=== PATIENT | female | born 1955 | race African-American/Black ===

== ENCOUNTER 2017-02-12 11:40 | Emergency (ER) | payer MEDICAID ==
[~2017-02-12] VITALS: Ht 162.6 cm; Wt 65.0 kg
[2017-02-12] MEDS ORDERED: METHYLPREDNISOLONE SOD SUCC 125 MG/2 ML VIAL IV STA (11:53)
[2017-02-12] MEDS ORDERED: IPRATROPIUM BROMIDE (0.02%) 0.5MG/2.5ML NEB HHN STA (11:53)
[2017-02-12] MEDS: ALBUTEROL (0.083%) 2.5MG/3ML NEB HHN SCH ×2 (12:10→13:35)
[2017-02-12 12:11] LABS: BASOPHILS % 0.6 % (0.0-2.0); EOSINOPHILS % 0.1 % (0.0-5.0); HEMATOCRIT. 36.7 % (36.0-48.0); HEMOGLOBIN. 12.7 g/dL (12.0-16.0); LYMPHOCYTES % 9.1 % (20.0-50.0); MEAN CORPUSCULAR HEMOGLOBIN 29.3 pg (28.0-32.0); MEAN CORPUSCULAR VOLUME 84.6 fL (81.0-99.0); MEAN PLATELET VOLUME 7.4 fl (7.4-10.4); MONOCYTES % 3.1 % (2.0-8.0); NEUTROPHILS % 87.1 % (40.0-76.0); PLATELET 457 x1000/uL (130-400); RED BLOOD CELL COUNT 4.34 mill/uL (4.2-5.4); RED CELL DISTRIBUTION WIDTH 14.8 % (11.6-14.6)
[2017-02-12 12:14] LABS: CHLORIDE 107 mEq/L (98-107)
[2017-02-12 12:23] LABS: CARBON DIOXIDE 25 mEq/L (21-32)
[2017-02-12] MEDS ORDERED: KETOROLAC 30MG/ML VIAL IV ONE (12:45)
[2017-02-12 13:30] VITALS: BP 129/85
== END 2017-02-12 15:05 | disposition home or self-care (01) ==
LOC: ER 12:01
DX: J44.1 Chronic obstructive pulmonary disease with (acute) exacerbation (principal); N64.4 Mastodynia; F41.9 Anxiety disorder, unspecified; F17.200 Nicotine dependence, unspecified, uncomplicated
CPT/HCPCS: 36415; 71010; 80053; 85025; 96374; 96375; 99285; J1885; J2930; J7611; Z7610

== ENCOUNTER 2017-09-11 16:47 | Inpatient (IN) | payer MEDICAID ==
[~2017-09-11] VITALS: Ht 162.6 cm; Wt 58.7 kg
[~2017-09-11 16:47] MED LIST: AMLO10TA80 PO; ASPI-1158 PO; ATOR10TA69 PO; BACL-141 PO; DIAZ10TA PO; DIPH25CA83 PO; HYDR50TA54 PO; LAMO25TA4 PO; LISI-604 PO; MONT10TA21 PO; OMEP20TA2 PO; QUET300T2 PO; TRAZ-129 PO
[2017-09-11] MEDS ORDERED: MIDAZOLAM HCL 2 MG/2 ML VIAL IM ONE (18:30)
[2017-09-11 18:50] LABS: BASOPHILS % 0.4 % (0.0-2.0); EOSINOPHILS % 1.7 % (0.0-5.0); HEMATOCRIT. 35.9 % (36.0-48.0); LYMPHOCYTES % 10.7 % (20.0-50.0); MEAN CORPUSCULAR HEMOGLOBIN 27.2 pg (28.0-32.0); MEAN CORPUSCULAR VOLUME 81.3 fL (81.0-99.0); MEAN PLATELET VOLUME 6.9 fl (7.4-10.4); MONOCYTES % 5.8 % (2.0-8.0); NEUTROPHILS % 81.4 % (40.0-76.0); PLATELET 466 x1000/uL (130-400); RED BLOOD CELL COUNT 4.42 mill/uL (4.2-5.4); RED CELL DISTRIBUTION WIDTH 13.5 % (11.6-14.6)
[2017-09-11 19:03] LABS: CHLORIDE 104 mEq/L (98-107); ETHANOL BLOOD < 10 mg/dL
[2017-09-11] MEDS ORDERED: SODIUM CHLORIDE 0.9% 1,000 ML IV ONE (21:51)
[2017-09-11 23:09] LABS: CLARITY URINE CLEAR (CLEAR); COLOR URINE YELLOW (YELLOW); KETONES URINE NEGATIVE (NEGATIVE); LEUKOCYTE ESTERASE URINE 2+ (NEGATIVE); NITRITE URINE NEGATIVE (NEGATIVE); OCCULT BLOOD URINE NEGATIVE (NEGATIVE); PROTEIN URINE NEGATIVE (NEGATIVE); SPECIFIC GRAVITY URINE 1.009 (1.005-1.030); UROBILINOGEN URINE 0.2 E.U./dL (0.2-1.0)
[2017-09-11] MEDS ORDERED: CEFTRIAXONE 1 G PREMIX 50 ML IV ONE (23:30)
[2017-09-12] VITALS (7 sets, daily range): BP systolic 113–137; BP diastolic 67–92
[2017-09-12 00:24] LABS: *AMPHETAMINES SCREEN URINE NEGATIVE (NEGATIVE); *BARBITURATES SCREEN URINE NEGATIVE (NEGATIVE); *BENZODIAZEPINES SCREEN URINE PRESUMTIVE POSITIVE (NEGATIVE); *COCAINE SCREEN URINE PRESUMTIVE POSITIVE (NEGATIVE); CANNABINOID URINE SCREEN NEGATIVE (NEGATIVE); METHADONE URINE SCREEN NEGATIVE (NEGATIVE); OPIATES URINE SCREEN NEGATIVE (NEGATIVE); PHENCYCLIDINE URINE SCREEN NEGATIVE (NEGATIVE)
[2017-09-12 00:45] LABS: CREATINE KINASE 26 IU/L (26-192); CREATINE KINASE MB FRACTION < 0.5 ng/mL (0.5-3.6); TROPONIN I < 0.02 ng/mL (0.00-0.04)
[2017-09-12] MEDS ORDERED: DOCUSATE SODIUM 100MG CAPSULE PO PRN (10:30)
[2017-09-12] MEDS ORDERED: ACETAMINOPHEN 325MG TABLET PO PRN (10:30)
[2017-09-12] MEDS ORDERED: ONDANSETRON HCL 4MG/2ML VIAL IV PRN (10:30)
[2017-09-12] MEDS ORDERED: MAGNESIUM/ALUMINUM HYDROXIDE/SIMETHICONE 30ML UDC PO PRN (10:30)
[2017-09-12] MEDS ORDERED: ACETAMINOPHEN 650MG SUPP PR PRN (10:30)
[2017-09-12] MEDS ORDERED: ACETAMINOPHEN 650MG/20.3ML UDC GT PRN (10:30)
[2017-09-12] MEDS ORDERED: NA PHOS,M-B/NA PHOS,DI-BA ENEMA 118ML PR PRN (10:30)
[2017-09-12] MEDS ORDERED: CLONIDINE 0.1MG TABLET PO PRN (10:30)
[2017-09-12] MEDS: IPRATROPIUM/ALBUTEROL 0.5-3(2.5)MG/3ML NEB INH SCH ×3 (11:31→21:10)
[2017-09-12] MEDS: ENOXAPARIN 40MG/0.4ML SYR SUBCUT SCH (12:44)
[2017-09-12] MEDS: MORPHINE SULFATE 4 MG/ML CPJ (NOT FOR IM USE) IV PRN ×3 (12:45→23:28)
[2017-09-12] MEDS: SODIUM CHLORIDE 0.9% INJ 3ML FLUSH IVF SCH ×2 (14:00→22:24)
[2017-09-12] MEDS: IPRATROPIUM/ALBUTEROL 0.5-3(2.5)MG/3ML NEB INH PRN (16:24)
[2017-09-12 16:28] LABS: CREATINE KINASE 38 IU/L (26-192); TROPONIN I < 0.02 ng/mL (0.00-0.04)
[2017-09-12] MEDS: GUAIFENESIN 200MG/10ML SUGAR FREE UDC PO PRN (16:57)
[2017-09-12] MEDS: HYDROCODONE/ACETAMINOPHEN 5/325MG TABLET PO PRN (19:47)
[2017-09-12 22:45] LABS: BASOPHILS % 0.9 % (0.0-2.0); EOSINOPHILS % 2.8 % (0.0-5.0); HEMATOCRIT. 32.8 % (36.0-48.0); HEMOGLOBIN. 10.9 g/dL (12.0-16.0); LYMPHOCYTES % 23.2 % (20.0-50.0); MEAN CORPUSCULAR VOLUME 80.7 fL (81.0-99.0); MEAN PLATELET VOLUME 7.1 fl (7.4-10.4); MONOCYTES % 6.9 % (2.0-8.0); NEUTROPHILS % 66.2 % (40.0-76.0); PLATELET 452 x1000/uL (130-400); RED BLOOD CELL COUNT 4.06 mill/uL (4.2-5.4); RED CELL DISTRIBUTION WIDTH 13.2 % (11.6-14.6)
[2017-09-12 22:48] LABS: CHLORIDE 100 mEq/L (98-107)
[2017-09-12 22:59] LABS: CREATINE KINASE 42 IU/L (26-192); TROPONIN I < 0.02 ng/mL (0.00-0.04)
[2017-09-12] MEDS: DIPHENHYDRAMINE 50MG/ML VIAL IV PRN (23:28)
[2017-09-13] VITALS: BP 123/78
[2017-09-13 00:07] LABS: CLARITY URINE CLEAR (CLEAR); COLOR URINE YELLOW (YELLOW); KETONES URINE NEGATIVE (NEGATIVE); LEUKOCYTE ESTERASE URINE 3+ (NEGATIVE); NITRITE URINE NEGATIVE (NEGATIVE); OCCULT BLOOD URINE NEGATIVE (NEGATIVE); PH URINE 5.5 (4.5-8.0); PROTEIN URINE NEGATIVE (NEGATIVE); SPECIFIC GRAVITY URINE 1.015 (1.005-1.030); UROBILINOGEN URINE 0.2 E.U./dL (0.2-1.0)
[2017-09-13] MEDS: IPRATROPIUM/ALBUTEROL 0.5-3(2.5)MG/3ML NEB INH PRN (00:07)
[2017-09-13] MEDS: CEFTRIAXONE 1 G PREMIX 50 ML IV SCH (00:17)
[2017-09-13 00:42] LABS: *AMPHETAMINES SCREEN URINE NEGATIVE (NEGATIVE); *BARBITURATES SCREEN URINE NEGATIVE (NEGATIVE); *BENZODIAZEPINES SCREEN URINE PRESUMTIVE POSITIVE (NEGATIVE); *COCAINE SCREEN URINE PRESUMTIVE POSITIVE (NEGATIVE); CANNABINOID URINE SCREEN NEGATIVE (NEGATIVE); METHADONE URINE SCREEN NEGATIVE (NEGATIVE); OPIATES URINE SCREEN PRESUMTIVE POSITIVE (NEGATIVE); PHENCYCLIDINE URINE SCREEN NEGATIVE (NEGATIVE)
[2017-09-13] MEDS: HYDROCODONE/ACETAMINOPHEN 5/325MG TABLET PO PRN (02:53)
[2017-09-13 04:00] VITALS: BP 119/96
[2017-09-13] MEDS: IPRATROPIUM/ALBUTEROL 0.5-3(2.5)MG/3ML NEB INH SCH ×4 (04:23→20:02)
[2017-09-13] MEDS: SODIUM CHLORIDE 0.9% INJ 3ML FLUSH IVF SCH ×2 (06:00→20:07)
[2017-09-13] MEDS: MORPHINE SULFATE 4 MG/ML CPJ (NOT FOR IM USE) IV PRN ×3 (06:04→15:47)
[2017-09-13 07:05] LABS: BASOPHILS % 1.1 % (0.0-2.0); HEMATOCRIT. 30.9 % (36.0-48.0); HEMOGLOBIN. 10.2 g/dL (12.0-16.0); LYMPHOCYTES % 24.5 % (20.0-50.0); MEAN CORPUSCULAR HEMOGLOBIN 26.6 pg (28.0-32.0); MEAN CORPUSCULAR VOLUME 80.7 fL (81.0-99.0); MEAN PLATELET VOLUME 7.2 fl (7.4-10.4); MONOCYTES % 6.8 % (2.0-8.0); NEUTROPHILS % 64.6 % (40.0-76.0); PLATELET 447 x1000/uL (130-400); RED BLOOD CELL COUNT 3.83 mill/uL (4.2-5.4); RED CELL DISTRIBUTION WIDTH 13.2 % (11.6-14.6)
[2017-09-13] MEDS ORDERED: LEVO500T2 PO (07:29)
[2017-09-13] MEDS ORDERED: FLUT1DIS3 IH (07:29)
[2017-09-13] MEDS ORDERED: ALBU6.7H INH (07:29)
[2017-09-13 07:58] LABS: CHLORIDE 100 mEq/L (98-107); PHOSPHORUS 4.1 mg/dL (2.5-4.9)
[2017-09-13 08:00] VITALS: BP 121/76
[2017-09-13 08:00] LABS: HDL CHOLESTEROL 54 mg/dL (40-59); LDL CHOLESTEROL 90 mg/dL (5-100)
[2017-09-13] MEDS: ENOXAPARIN 40MG/0.4ML SYR SUBCUT SCH (08:23)
[2017-09-13] MEDS: GUAIFENESIN 200MG/10ML SUGAR FREE UDC PO PRN (10:44)
[2017-09-13] MEDS ORDERED: PREDNISONE 20MG TABLET PO SCH (11:00)
[2017-09-13] MEDS: BUDESONIDE 0.5MG/2ML NEB HHN SCH ×2 (13:46→20:02)
[2017-09-13 15:47] VITALS: BP 112/85
[2017-09-13 16:00] VITALS: BP 113/77
[2017-09-13 20:00] VITALS: BP 108/74
[2017-09-13 22:25] LABS: BG BASE EXCESS 3.3 mmol/L (-2.0-2.0); BG CARBOXYHEMOGLOBIN 0.5 % (0.5-1.5); BG FRACTION INSPIRED OXYGEN 21; BG HCO3 ACT 28.2 mmol/L (22.0-26.0); BG METHEMOGLOBIN 0.1 % (0.0-1.5); BG OXYGEN SATURATION 89.9 % (92.0-98.5); BG OXYHEMOGLOBIN 89.4 % (94.0-97.0); BG PCO2 44.2 mmHg (35.0-45.0); BG PH 7.423 (7.350-7.450); BG PO2 59.5 mmHg (75.0-100.0); BG SAMPLE SITE RIGHT BRACHIAL; BG TOTAL HEMOGLOBIN 11.3 g/dL (12.0-18.0); BG VENT MODE ROOM AIR
[2017-09-14] VITALS: BP 101/74
[2017-09-14] MEDS: DIPHENHYDRAMINE 50MG/ML VIAL IV PRN (00:10)
[2017-09-14] MEDS: CEFTRIAXONE 1 G PREMIX 50 ML IV SCH (00:13)
[2017-09-14] MEDS: IPRATROPIUM/ALBUTEROL 0.5-3(2.5)MG/3ML NEB INH SCH ×3 (01:56→14:37)
[2017-09-14] MEDS ORDERED: AZITHROMYCIN 500 MG in DEXT 5% WATER 250 ML IV SCH (02:00)
[2017-09-14 04:00] VITALS: BP 99/67
[2017-09-14] MEDS: SODIUM CHLORIDE 0.9% INJ 3ML FLUSH IVF SCH (04:14)
[2017-09-14 08:00] VITALS: BP 111/80
[2017-09-14] MEDS: ENOXAPARIN 40MG/0.4ML SYR SUBCUT SCH (08:35)
[2017-09-14] MEDS: BUDESONIDE 0.5MG/2ML NEB HHN SCH (09:08)
[2017-09-14 09:42] LABS: BG BASE EXCESS 1.5 mmol/L (-2.0-2.0); BG CARBOXYHEMOGLOBIN 0.3 % (0.5-1.5); BG DEOXYHEMOGLOBIN 7.5 % (0.0-5.0); BG FRACTION INSPIRED OXYGEN 28; BG HCO3 ACT 26.6 mmol/L (22.0-26.0); BG METHEMOGLOBIN 0.4 % (0.0-1.5); BG OXYGEN SATURATION 92.4 % (92.0-98.5); BG OXYHEMOGLOBIN 91.8 % (94.0-97.0); BG PCO2 44.1 mmHg (35.0-45.0); BG PH 7.399 (7.350-7.450); BG PO2 67.5 mmHg (75.0-100.0); BG SAMPLE SITE RIGHT BRACHIAL; BG TOTAL HEMOGLOBIN 11.6 g/dL (12.0-18.0); BG VENT MODE NASAL CANNULA
[2017-09-14] MEDS: HYDROCODONE/ACETAMINOPHEN 5/325MG TABLET PO PRN (10:01)
[2017-09-14 12:00] VITALS: BP 100/70
[2017-09-14] MEDS ORDERED: LORAZEPAM 2MG/ML CPJ IV PRN (12:00)
[2017-09-14] MEDS ORDERED: METHYLPREDNISOLONE SOD SUCC 40 MG/ML VIAL IV SCH ×2 (12:00)
[2017-09-14] MEDS ORDERED: P50 PO (12:44)
[2017-09-14 16:00] VITALS: BP 115/82
[2017-09-14] MEDS ORDERED: MONTELUKAST SODIUM 10MG TABLET PO SCH (17:00)
[2017-09-14] MEDS ORDERED: FAMOTIDINE 20MG TABLET PO SCH (21:00)
[2017-09-15] MEDS ORDERED: AZITHROMYCIN 500 MG in SODIUM CHLORIDE 0.9% 250 ML IV SCH (02:00)
== END 2017-09-14 17:51 | disposition home or self-care (01) | DRG 816 ==
LOC: ER 16:59 → 5EST 23:53 → 7WST 09-13 16:52
PROVIDERS: ADMIT Family Medicine; ATTEND Family Medicine
DX: T40.5X1A Poisoning by cocaine, accidental (unintentional), initial encounter (principal); J96.01 Acute respiratory failure with hypoxia; A41.9 Sepsis, unspecified organism; G93.41 Metabolic encephalopathy; G92 Toxic encephalopathy; E44.0 Moderate protein-calorie malnutrition; J44.1 Chronic obstructive pulmonary disease with (acute) exacerbation; F20.9 Schizophrenia, unspecified; J20.9 Acute bronchitis, unspecified; J44.0 Chronic obstructive pulmonary disease with (acute) lower respiratory infection; F31.9 Bipolar disorder, unspecified; Z85.3 Personal history of malignant neoplasm of breast; N39.0 Urinary tract infection, site not specified; F41.9 Anxiety disorder, unspecified; F14.10 Cocaine abuse, uncomplicated; I10 Essential (primary) hypertension; T38.0X5A Adverse effect of glucocorticoids and synthetic analogues, initial encounter; D64.9 Anemia, unspecified; Z91.018 Allergy to other foods; Z79.82 Long term (current) use of aspirin; Z79.899 Other long term (current) drug therapy; Z68.22 Body mass index [BMI] 22.0-22.9, adult
CPT/HCPCS: 36415; 36600; 70450; 71045; 71046; 80048; 80053; 80061; 80305; 80307; 80329; 81001; 81003; 82375; 82550; 82553; 82805; 83605; 83735; 83880; 84100; 84484; 85025; 87040; 87086; 93005; 96374; 97162; 99285; G0482; J0456; J0696; J1200; J1650; J2270; J2920; J7030; J7050; J7060; J7512; J7620; J7626